=== PATIENT | male | born 1935 | race Caucasian/White ===

== ENCOUNTER 2019-01-30 10:34 | Day surgery (SDC) | payer OTHER ==
[~2019-01-30] VITALS: Ht 175.3 cm; Wt 88.5 kg
[~2019-01-30 10:34] MED LIST: KETO200T PO; MULT1TAB70 PO; RIVA20TA PO; SODIUM CHLORIDE 0.9% 1000ML 1,000 ML IV ONE; TRAVATAN OU
[2019-01-30 11:21] VITALS: BP 135/85
[2019-01-30] MEDS ORDERED: PROPOFOL 10 MG/ML 20ML VIAL IV ONE ×2 (11:56→12:17)
[2019-01-30 12:23] VITALS: BP 99/44
[2019-01-30 12:28] VITALS: BP 137/67
[2019-01-30 12:35] VITALS: BP 136/73
[2019-01-30 12:40] VITALS: BP 128/73
[2019-01-30 12:58] VITALS: BP 149/80
== END 2019-01-30 13:05 | disposition home or self-care (01) ==
LOC: ENDO 10:34 → DAH 10:34 → ENDO 13:05
PROVIDERS: ATTEND Internal Medicine Gastroenterology
DX: D12.3 Benign neoplasm of transverse colon (principal); K29.50 Unspecified chronic gastritis without bleeding; B96.81 Helicobacter pylori [H. pylori] as the cause of diseases classified elsewhere; R19.4 Change in bowel habit; Z68.30 Body mass index [BMI] 30.0-30.9, adult; Z85.038 Personal history of other malignant neoplasm of large intestine; Z85.118 Personal history of other malignant neoplasm of bronchus and lung; Z98.890 Other specified postprocedural states; Z79.899 Other long term (current) drug therapy; Z79.01 Long term (current) use of anticoagulants; K57.30 Diverticulosis of large intestine without perforation or abscess without bleeding; K63.89 Other specified diseases of intestine; I48.2 Chronic atrial fibrillation
CPT/HCPCS: 43239; 45385; 88305; A4606; J2704 ×2; J7030

== ENCOUNTER → 2019-07-24 | Outpatient (CLI) | payer OTHER ==
[~2019-07-24] MED LIST changes: -KETO200T PO; +KETO200T3 PO; -SODIUM CHLORIDE 0.9% 1000ML 1,000 ML IV ONE
== END | disposition home or self-care (01) ==
LOC: SHCH 13:07
PROVIDERS: ATTEND Internal Medicine Cardiovascular Disease
DX: I73.9 Peripheral vascular disease, unspecified (principal); I87.2 Venous insufficiency (chronic) (peripheral); K21.9 Gastro-esophageal reflux disease without esophagitis
CPT/HCPCS: 93925; 93970

== ENCOUNTER → 2019-08-27 | Outpatient (CLI) | payer OTHER | END | disposition home or self-care (01) | LOC: SHCH 13:05 | PROVIDERS: ATTEND Internal Medicine Cardiovascular Disease | DX: I82.812 Embolism and thrombosis of superficial veins of left lower extremity (principal) | CPT/HCPCS: 93971 ==

== ENCOUNTER → 2019-09-17 | Outpatient (CLI) | payer OTHER | END | disposition home or self-care (01) | LOC: SHCH 10:40 | PROVIDERS: ATTEND Internal Medicine Cardiovascular Disease | DX: I82.492 Acute embolism and thrombosis of other specified deep vein of left lower extremity (principal) | CPT/HCPCS: 93971 ==

== ENCOUNTER 2020-02-26 15:21 | Observation (INO) | payer OTHER ==
[~2020-02-26] VITALS: Ht 175.3 cm; Wt 88.9 kg
[~2020-02-26 15:21] MED LIST changes: +KETO200T11 PO; -KETO200T3 PO; +MULT-660 PO; -MULT1TAB70 PO
[2020-02-26] MEDS ORDERED: SODIUM CHLORIDE 0.9% 100 ML IV ONE (15:51)
[2020-02-26] MEDS ORDERED: CEFTRIAXONE SODIUM 2 GM VIAL ONE (15:51)
[2020-02-26] MEDS ORDERED: ONDANSETRON HCL 4 MG/2 ML VIAL ONE (16:20)
[2020-02-26 16:24] LABS: BASOPHILS % (AUTO) 0.2 % (0.0-5.0); EOSINOPHILS % (AUTO) 0.4 % (0.0-8.0); HEMATOCRIT 38.9 % (42-54); LYMPHOCYTES % (AUTO) 9.4 % (21.0-51.0); MEAN CORPUSCULAR HEMOGLOBIN 29.5 pg (27.0-33.0); MEAN CORPUSCULAR HGB CONC 32.1 g/dL (32.0-36.0); MEAN CORPUSCULAR VOLUME 91.7 fL (79-99); MONOCYTES % (AUTO) 5.8 % (3.0-13.0); NEUTROPHILS % (AUTO) 83.9 % (40.0-77.0); PLATELET COUNT (AUTO) 111 K/uL (130-400); RED BLOOD CELL COUNT(AUTO) 4.24 MIL/uL (4.50-6.20); WHITE BLOOD COUNT (AUTO) 9.1 K/uL (4.8-10.8)
[2020-02-26 16:42] LABS: CARBON DIOXIDE 28 mmol/L (21-32); CHLORIDE 103 mmol/L (101-111); CREATININE 1.3 mg/dL (0.5-1.5); GLOMERULAR FILTR. RATE CALC 56 mL/min (>60); GLUCOSE,RANDOM 85 mg/dL (70-105); POTASSIUM 4.2 mmol/L (3.5-5.1); SODIUM SERUM 138 mmol/L (136-145); UREA NITROGEN, BLOOD 34 mg/dL (7-18)
[2020-02-26 16:53] LABS: ALANINE AMINOTRANSFERASE 23 U/L (12-78); ALBUMIN 4.1 g/dL (3.5-5.0); ASPARTATE AMINOTRANSFERASE 28 U/L (10-37); BILIRUBIN,TOTAL 1.6 mg/dL (0.2-1.0); CREATINE KINASE, TOTAL 117 U/L (21-232); MYOGLOBIN 143 ng/mL (10-92); TOTAL PROTEIN, SERUM 7.6 g/dL (6.0-8.3); TROPONIN I < 0.04 ng/mL (0.00-0.06)
[2020-02-26 17:04] LABS: INR 1.38 (0.85-1.15); PARTIAL THROMBOPLASTIN TIME 39.9 SEC (26.3-35.5); PROTHROMBIN TIME 14.7 SEC (9.6-11.6)
[2020-02-26 17:11] LABS: APPEARANCE,URINE Clear (CLEAR); BILIRUBIN,URINE Negative (NEGATIVE); COLOR,URINE Dark Yellow (YELLOW); GLUCOSE, URINE (UA) Negative (NEGATIVE); KETONES,URINE Negative (NEGATIVE); LEUKOCYTE ESTERASE ,URINE Negative (NEGATIVE); NITRATE,URINE Negative (NEGATIVE); OCCULT BLOOD,URINE Trace (NEGATIVE); PROTEIN,URINE Trace mg/dL (NEGATIVE)
[2020-02-26 17:38] LABS: BACTERIA,URINE Rare /HPF (None Seen); RBC,URINE 0-1 /HPF (0-1); SQUAMOUS EPITHELIAL CELL,UR Rare /HPF (0-2); WBC,URINE 0-1 /HPF (0-1)
[2020-02-26 17:39] LABS: HYALINE CASTS, URINE 0-1 /LPF (0-1 /LPF); MUCUS,URINE Few LPF (None Seen)
[2020-02-26] MEDS ORDERED: AZITHROMYCIN 250 MG TABLET PO ONE (19:49)
[2020-02-26] MEDS ORDERED: AZITHROMYCIN 250 MG TABLET PO SCH (20:00)
[2020-02-26] MEDS ORDERED: ACETAMINOPHEN 325 MG TAB PO PRN (20:00)
[2020-02-26] MEDS ORDERED: ONDANSETRON ODT 4 MG TAB PO PRN (20:00)
[2020-02-26 20:26] LABS: CRP QUANTITATIVE 38.5 mg/L (0.00-9.0)
[2020-02-27] MEDS ORDERED: CEFTRIAXONE SODIUM 1 GM IVP SCH (15:00)
[2020-02-27] MEDS ORDERED: DOXA8TAB81 PO (18:29)
[2020-02-27] MEDS ORDERED: CICL15CR15 TP (18:29)
[2020-02-27] MEDS ORDERED: [UNRECOGNIZED DRUG - CODE] TP (18:29)
[2020-02-27] MEDS ORDERED: ATOR10 PO (18:29)
== END 2020-02-26 21:12 | disposition left against medical advice (07) ==
LOC: EDH 15:21 → EDHIP 18:45
PROVIDERS: ADMIT Internal Medicine Critical Care Medicine; ATTEND Internal Medicine Critical Care Medicine
DX: J12.89 Other viral pneumonia (principal); Z20.828 Contact with and (suspected) exposure to other viral communicable diseases
CPT/HCPCS: 36415; 71045; 80053; 81001; 82550; 82728; 83605; 83615; 83874; 84145; 84484; 85025; 85378; 85610; 85730; 86140; 87040 ×2; 87088; 87633; 87635; 87804 ×2; 93005; 99285; G0378 ×2; J0696; J2405

== ENCOUNTER 2020-02-27 13:43 | Observation (INO) | payer OTHER ==
[~2020-02-27] VITALS: Ht 172.7 cm; Wt 89.8 kg
[2020-02-27 14:33] LABS: BASOPHILS % (AUTO) 0.2 % (0.0-5.0); EOSINOPHILS % (AUTO) 0.1 % (0.0-8.0); HEMATOCRIT 36.5 % (42-54); LYMPHOCYTES % (AUTO) 9.8 % (21.0-51.0); MEAN CORPUSCULAR HGB CONC 33.2 g/dL (32.0-36.0); MEAN CORPUSCULAR VOLUME 90.6 fL (79-99); NEUTROPHILS % (AUTO) 80.6 % (40.0-77.0); PLATELET COUNT (AUTO) 100 K/uL (130-400); RED BLOOD CELL COUNT(AUTO) 4.03 MIL/uL (4.50-6.20); RED CELL DISTRIBUTION WIDTH 13.7 % (11.0-15.5); WHITE BLOOD COUNT (AUTO) 8.6 K/uL (4.8-10.8)
[2020-02-27 14:39] LABS: CARBON DIOXIDE 28 mmol/L (21-32); CHLORIDE 105 mmol/L (101-111); CREATININE 1.2 mg/dL (0.5-1.5); GLOMERULAR FILTR. RATE CALC 61 mL/min (>60); GLUCOSE,RANDOM 101 mg/dL (70-105); POTASSIUM 3.9 mmol/L (3.5-5.1); SODIUM SERUM 138 mmol/L (136-145); UREA NITROGEN, BLOOD 28 mg/dL (7-18)
[2020-02-27 14:41] LABS: INR 1.28 (0.85-1.15); PROTHROMBIN TIME 13.7 SEC (9.6-11.6)
[2020-02-27 14:43] LABS: APPEARANCE,URINE CLEAR (CLEAR); BILIRUBIN,URINE NEGATIVE (NEGATIVE); COLOR,URINE YELLOW (YELLOW); GLUCOSE, URINE (UA) NEGATIVE (NEGATIVE); KETONES,URINE NEGATIVE (NEGATIVE); LEUKOCYTE ESTERASE ,URINE NEGATIVE (NEGATIVE); NITRATE,URINE NEGATIVE (NEGATIVE); OCCULT BLOOD,URINE SMALL (NEGATIVE); PROTEIN,URINE 30 mg/dL (NEGATIVE); UROBILINOGEN,URINE 0.2 mg/dL (0.2-1.0)
[2020-02-27] MEDS: CEFTRIAXONE SODIUM 1 GM IVP SCH (14:45)
[2020-02-27] MEDS: FUROSEMIDE 20 MG TABLET PO SCH (14:45)
[2020-02-27] MEDS ORDERED: HYDRALAZINE HCL 20 MG/ML VIAL IV PRN (14:45)
[2020-02-27] MEDS ORDERED: DEXAMETHASONE 10MG/ML 1ML VIAL 20 MG in SODIUM CHLORIDE 0.9% 50 ML IV SCH (14:45)
[2020-02-27 14:53] LABS: ALANINE AMINOTRANSFERASE 28 U/L (12-78); ALBUMIN 3.9 g/dL (3.5-5.0); ASPARTATE AMINOTRANSFERASE 31 U/L (10-37); BILIRUBIN,TOTAL 1.1 mg/dL (0.2-1.0); CREATINE KINASE, TOTAL 174 U/L (21-232); MYOGLOBIN 139 ng/mL (10-92); TROPONIN I < 0.04 ng/mL (0.00-0.06)
[2020-02-27 15:18] LABS: WBC,URINE 0-1 /HPF (0-1)
[2020-02-27 15:19] LABS: BACTERIA,URINE Few /HPF (None Seen); MUCUS,URINE Few LPF (None Seen); SQUAMOUS EPITHELIAL CELL,UR Rare /HPF (0-2)
[2020-02-27 15:29] LABS: ABG BASE EXCESS 0.5 mmol/L (-2.0-3.0); ABG HCO3 24.5 mmol/L (21.0-28.0); ABG OXYGEN SATURATION 97.6 % (95.0-99.0); ABG PCO2 38 mmHg (35-48)
[2020-02-27 15:30] VITALS: BP 119/74
[2020-02-27] MEDS ORDERED: CEFTRIAXONE SODIUM 1 GM ONE (15:52)
[2020-02-27] MEDS: AZITHROMYCIN 500MG+NS 250ML 250 ML IV SCH (16:00)
[2020-02-27] MEDS: INSULIN HUMULIN R 100 UNIT/ML 3ML SQ SCH ×2 (16:30→20:00)
[2020-02-27] MEDS ORDERED: [UNRECOGNIZED DRUG - CODE] TP (18:29)
[2020-02-27] MEDS ORDERED: CICL15CR15 TP (18:29)
[2020-02-27] MEDS ORDERED: DOXA8TAB81 PO (18:29)
[2020-02-27] MEDS ORDERED: ATOR10 PO (18:29)
[2020-02-27] MEDS: RIVAROXABAN 20 MG TABLET PO SCH (20:04)
[2020-02-27 20:08] VITALS: BP 133/70
[2020-02-27 23:43] VITALS: BP 152/79
[2020-02-28] MEDS: FUROSEMIDE 20 MG TABLET PO SCH ×2 (03:40→13:18)
[2020-02-28 03:51] VITALS: BP 117/72
[2020-02-28 04:24] LABS: ABG BASE EXCESS -3.5 mmol/L (-2.0-3.0); ABG HCO3 20.4 mmol/L (21.0-28.0); ABG OXYGEN SATURATION 97.4 % (95.0-99.0); ABG PCO2 34 mmHg (35-48)
[2020-02-28 04:50] LABS: HEMATOCRIT 35.5 % (42-54); MEAN CORPUSCULAR HEMOGLOBIN 29.2 pg (27.0-33.0); MEAN CORPUSCULAR HGB CONC 31.8 g/dL (32.0-36.0); MEAN CORPUSCULAR VOLUME 91.7 fL (79-99); RED BLOOD CELL COUNT(AUTO) 3.87 MIL/uL (4.50-6.20); RED CELL DISTRIBUTION WIDTH 13.8 % (11.0-15.5); WHITE BLOOD COUNT (AUTO) 6.6 K/uL (4.8-10.8)
[2020-02-28 05:15] LABS: INR 1.55 (0.85-1.15); PARTIAL THROMBOPLASTIN TIME 43.2 SEC (26.3-35.5); PROTHROMBIN TIME 16.5 SEC (9.6-11.6)
[2020-02-28 05:17] LABS: ALBUMIN 3.4 g/dL (3.5-5.0); BILIRUBIN,TOTAL 0.7 mg/dL (0.2-1.0); CREATININE 1.2 mg/dL (0.5-1.5); CRP QUANTITATIVE 40.8 mg/L (0.00-9.0); MAGNESIUM 1.9 mg/dL (1.80-2.40); PHOSPHORUS 2.6 mg/dL (2.5-4.9); POTASSIUM 3.8 mmol/L (3.5-5.1); TOTAL PROTEIN, SERUM 6.8 g/dL (6.0-8.3)
[2020-02-28] MEDS: INSULIN HUMULIN R 100 UNIT/ML 3ML SQ SCH ×4 (07:30→20:36)
[2020-02-28 08:30] VITALS: BP 111/60
[2020-02-28] MEDS: MULTIVITAMIN TABLET PO SCH (08:38)
[2020-02-28] MEDS: KETOCONAZOLE 200 MG PO SCH (08:57)
--- NOTE | 2020-02-28 09:20 | NUR ---
DYSPHAGIA MAGED COMPLETED. S/S OF ASPIRATION AT THIS TIME. RECOMMEND REGULAR SOLIDS, THIN LIQUIDS, AND PILLS WHOLE WITH LIQUIDS TOLERATED. IRON CUTTER EDUCATED Pt ON RISKS AND CONSEQUENCES OF ASPIRATION. IRON CUTTER COORDINATED WITH NURSE TOMLINSON ABOUT CARE AND RECOMMENDATIONS. Addendum: 02/28/[address] L[address]ITHA FLORES Amended: Links added.
[2020-02-28] MEDS ORDERED: PHARMACY COMMUNICATION MISC SCH (12:00)
[2020-02-28] MEDS ORDERED: COMPOUND PO MISCELLANEOUS 1 EACH MISC MISC PRN (12:15)
[2020-02-28 13:06] VITALS: BP 109/64
[2020-02-28] MEDS: AZITHROMYCIN 500MG+NS 250ML 250 ML IV SCH (13:18)
[2020-02-28] MEDS: CEFTRIAXONE SODIUM 1 GM IVP SCH (13:18)
[2020-02-28] MEDS: DEXAMETHASONE 10MG/ML 1ML VIAL 20 MG in SODIUM CHLORIDE 0.9% 50 ML IV SCH (13:20)
[2020-02-28] MEDS: VANCOMYCIN 2 GM, SODIUM CHLORIDE 0.9% 80 ML PO SCH ×6 (13:20→20:20)
[2020-02-28 16:30] VITALS: BP 124/66
[2020-02-28 20:00] VITALS: BP 131/59
[2020-02-28] MEDS: RIVAROXABAN 20 MG TABLET PO SCH (20:19)
[2020-02-28] MEDS ORDERED: TRAVATAN OU SCH (21:00)
[2020-02-29 00:14] VITALS: BP 105/48
[2020-02-29] MEDS: FUROSEMIDE 20 MG TABLET PO SCH ×2 (01:26→13:28)
[2020-02-29 04:00] VITALS: BP 106/46
[2020-02-29] MEDS: INSULIN HUMULIN R 100 UNIT/ML 3ML SQ SCH ×2 (06:10→11:26)
[2020-02-29 07:00] VITALS: BP 131/58
[2020-02-29] MEDS: MULTIVITAMIN TABLET PO SCH (07:41)
[2020-02-29] MEDS: KETOCONAZOLE 200 MG PO SCH (07:41)
[2020-02-29] MEDS: VANCOMYCIN 2 GM, SODIUM CHLORIDE 0.9% 80 ML PO SCH ×4 (07:45→11:26)
--- NOTE | 2020-02-29 08:00 | NUR ---
ENCOUNTERED PATIENT SITTING ON EDGE OF BED WITH NO C/O SOB. PATIENT IS ANXIOUS TO GO HOME ASKING IF COVID-19 RESULTS ARE BACK. I INFORMED PATIENT THAT OF THIS MORNING, RESULTS ARE STILL PENDING. HE VERBALIZED THAT HE MIGHT NOT HAVE THE PATIENCE TO WAIT THE WHOLE DAY TODAY AND MIGHT JUST HAVE TO "WALK OUT" IF HE DOES NOT GET ANSWERS. PT SAID THAT HE'LL GIVE IT THE WHOLE DAY. FULL ASSESSMENT DONE. KEPT PATIENT ON BOTH ENHANCED AND CONTACT PLUS ISOLATION. PT DENIES ANY DIARRHEA. HE SAID THAT LAST BM AT 7AM WAS SOFT FORMED. CALL LIGHT WITHIN REACH. INSTRUCTED TO CALL FOR ASSISTANCE.
[2020-02-29] MEDS: DEXAMETHASONE 10MG/ML 1ML VIAL 20 MG in SODIUM CHLORIDE 0.9% 50 ML IV SCH (08:05)
[2020-02-29 11:00] VITALS: BP 103/60
--- NOTE | 2020-02-29 12:36 | NUR ---
CALLED [facility] FOR NEW CONSULT. LEFT VOICEMAIL FOR HYUN. AWAITING MD'S CALLBACK. DR. INGRAM IS HR SYSTEMS ANALYST TODAY.
[2020-02-29] MEDS: AZITHROMYCIN 500MG+NS 250ML 250 ML IV SCH (13:28)
[2020-02-29] MEDS: CEFTRIAXONE SODIUM 1 GM IVP SCH (13:28)
--- NOTE | 2020-02-29 13:38 | NUR ---
RM CARTAGENA ACID DUMPER IS HERE TO SEE PATIENT.
--- NOTE | 2020-02-29 15:55 | NUR ---
PATIENT IS PENDING COVID-19 RESULTS. INFORMED NATALIA WEBER RN ABOUT THIS. SHE WILL CALL PATIENT WITH RESULTS.
[2020-02-29] MEDS ORDERED: VANCO125PO PO (16:21)
--- NOTE | 2020-02-29 16:26 | NUR ---
DISCHARGE INSTRUCTIONS/INFORMATION GIVEN TO PATIENT. TEACH BACK METHOD USED TO EDUCATE PATIENT ON DIET, NEW MED PRESCRIBED, S/S TO MONITOR FOR, WHEN TO CALL MD, AND F/U APPOINTMENTS. PATIENT IS STILL PENDING COVID-19 RESULTS. HE WILL BE CALLED BY INFECTION CONTROL NURSE WITH IT. ENCOURAGED PATIENT TO CONTINUE TO FOLLOW CDC GUIDELINES IN PREVENTING SPREAD OF COVID-19. PATIENT IS ASKED TO SELF QUARANTINE FOR 14 DAYS OR INSTRUCTED BY INFECTION CONTROL NURSE. PIV REMOVED. TIP WAS INTACT. TELE PACK REMOVED AND RETURNED. ALL BELONGINGS WERE PACKED BY PATIENT. METICULOUS HAND HYGIENE ENCOURAGED. PATIENT VERBALIZED UNDERSTANDING OF ALL INSTRUCTIONS. NO SOB, MALAISE, SORE THROAT AT THIS TIME.
== END 2020-02-29 18:10 | disposition home or self-care (01) ==
LOC: EDH 13:43 → EDHIP 14:35 → 2DH 16:29
PROVIDERS: ADMIT Internal Medicine Critical Care Medicine; ATTEND Internal Medicine Critical Care Medicine
DX: J18.9 Pneumonia, unspecified organism (principal); Z03.818 Encounter for observation for suspected exposure to other biological agents ruled out; A04.72 Enterocolitis due to Clostridium difficile, not specified as recurrent; R00.1 Bradycardia, unspecified; I48.91 Unspecified atrial fibrillation; I25.10 Atherosclerotic heart disease of native coronary artery without angina pectoris; I51.7 Cardiomegaly; N40.0 Benign prostatic hyperplasia without lower urinary tract symptoms; Z85.118 Personal history of other malignant neoplasm of bronchus and lung; Z79.01 Long term (current) use of anticoagulants; Z79.899 Other long term (current) drug therapy
CPT/HCPCS: 36415 ×2; 36600 ×2; 71045; 71250; 80053 ×2; 82270; 82550 ×2; 82728; 82803 ×2; 82948 ×7; 83605 ×2; 83615; 83735; 83874; 84100; 84145 ×2; 84484; 85025; 85027; 85378; 85610 ×2; 85730 ×2; 86140; 87040 ×2; 87046; 87088; 87324; 92610; 93005 ×2; 93970; 96365; 96366; 96368; 96375; 96376; 99285; G0378 ×49; J0456 ×2; J0696 ×3; J1100 ×2; J1815 ×2; J3370

== ENCOUNTER → 2021-09-15 | Outpatient (CLI) | payer OTHER ==
[~2021-09-15] MED LIST changes: +ATOR10 PO; +CICL15CR15 TP; +DOXA8TAB81 PO; +VANCO125PO PO; +[UNRECOGNIZED DRUG - CODE] TP
== END | disposition home or self-care (01) ==
LOC: SHCH 14:45
PROVIDERS: ATTEND Internal Medicine Cardiovascular Disease
DX: I87.2 Venous insufficiency (chronic) (peripheral) (principal)
CPT/HCPCS: 93970

== ENCOUNTER → 2021-12-07 | Outpatient (CLI) | payer OTHER ==
[~2021-12-07] MED LIST changes: +IOHEXOL 350 MG/ML 100ML INFUS..BTL IV ONE
== END | disposition home or self-care (01) ==
LOC: RAH 08:36
PROVIDERS: ATTEND Urology
DX: N20.0 Calculus of kidney (principal); N32.89 Other specified disorders of bladder; I25.10 Atherosclerotic heart disease of native coronary artery without angina pectoris; I70.8 Atherosclerosis of other arteries; J92.9 Pleural plaque without asbestos; R18.8 Other ascites; M47.815 Spondylosis without myelopathy or radiculopathy, thoracolumbar region; Z95.828 Presence of other vascular implants and grafts; Z90.49 Acquired absence of other specified parts of digestive tract
CPT/HCPCS: 74178; Q9967

== ENCOUNTER → 2023-11-28 | Outpatient (CLI) | payer OTHER ==
[~2023-11-28] MED LIST changes: -IOHEXOL 350 MG/ML 100ML INFUS..BTL IV ONE
== END | disposition home or self-care (01) ==
LOC: SHCH 09:22
PROVIDERS: ATTEND Internal Medicine Cardiovascular Disease
DX: I87.2 Venous insufficiency (chronic) (peripheral) (principal); Z98.890 Other specified postprocedural states
CPT/HCPCS: 93971

== ENCOUNTER → 2023-12-05 | Outpatient (CLI) | payer OTHER | END | disposition home or self-care (01) | LOC: SHCH 08:53 | PROVIDERS: ATTEND Internal Medicine Cardiovascular Disease | DX: I87.2 Venous insufficiency (chronic) (peripheral) (principal); I87.1 Compression of vein; I48.91 Unspecified atrial fibrillation; I89.0 Lymphedema, not elsewhere classified; I25.10 Atherosclerotic heart disease of native coronary artery without angina pectoris; Z79.899 Other long term (current) drug therapy; Z82.49 Family history of ischemic heart disease and other diseases of the circulatory system; Z79.01 Long term (current) use of anticoagulants | CPT/HCPCS: 93971 ==

== ENCOUNTER → 2024-02-28 | Outpatient (CLI) | payer OTHER ==
[2024-02-28 12:57] LABS: CREATININE 1.1 mg/dL (0.5-1.3)
== END | disposition home or self-care (01) ==
LOC: LAB 11:41
PROVIDERS: ATTEND Family Medicine
DX: R63.4 Abnormal weight loss (principal)
CPT/HCPCS: 36415; 82565; 84520

== ENCOUNTER → 2024-03-01 | Outpatient (CLI) | payer OTHER ==
[~2024-03-01] MED LIST changes: +IOHEXOL 350 MG/ML 100ML INFUS..BTL IV ONE
== END | disposition home or self-care (01) ==
LOC: RAH 08:00
PROVIDERS: ATTEND Family Medicine
DX: J92.9 Pleural plaque without asbestos (principal); J84.10 Pulmonary fibrosis, unspecified; J94.8 Other specified pleural conditions; I25.10 Atherosclerotic heart disease of native coronary artery without angina pectoris; R63.4 Abnormal weight loss; M47.815 Spondylosis without myelopathy or radiculopathy, thoracolumbar region
CPT/HCPCS: 71260; 74177; Q9967

== ENCOUNTER → 2024-08-07 | Outpatient (CLI) | payer OTHER ==
[~2024-08-07] MED LIST changes: -IOHEXOL 350 MG/ML 100ML INFUS..BTL IV ONE
== END | disposition home or self-care (01) ==
LOC: SHCH 09:08
PROVIDERS: ATTEND Internal Medicine Cardiovascular Disease
DX: I25.110 Atherosclerotic heart disease of native coronary artery with unstable angina pectoris (principal)
CPT/HCPCS: 93306

== ENCOUNTER → 2024-10-19 | Outpatient (CLI) | payer OTHER ==
[2024-10-19 12:35] LABS: CREATININE 1.1 mg/dL (0.5-1.3); POTASSIUM 4.8 mmol/L (3.5-5.1)
== END | disposition home or self-care (01) ==
LOC: LAB 10:16
PROVIDERS: ATTEND Internal Medicine Cardiovascular Disease
DX: I20.9 Angina pectoris, unspecified (principal); R07.9 Chest pain, unspecified; R06.09 Other forms of dyspnea
CPT/HCPCS: 36415; 80048

== ENCOUNTER → 2024-10-26 | Outpatient (CLI) | payer OTHER ==
[~2024-10-26] MED LIST changes: +IOHEXOL 350 MG/ML 100ML INFUS..BTL IV ONE
--- NOTE | 2024-10-26 13:53 | HMCIMG ---
CT CARDIAC ANGIO W/CONT. CCTA REASON: CHEST PAIN COMPARISON: None TECHNIQUE: Images are obtained through the heart in the axial plane before and during bolus IV contrast infusion, 100 cc Omnipaque 350. 2-D and 3-D multiplanar reconstruction images were then performed. The injection had to be repeated once due to motion artifact on the first sequence, total contrast volume was 200 cc. FINDINGS: This dictation is for the noncardiac findings only. Cardiac and coronary artery findings are reported separately. Visualized portions of the lungs are clear. There is normal-appearing pulmonary interstitium. There is no hilar or mediastinal lymphadenopathy. Chest wall structures appear unremarkable. IMPRESSION: 1. Unremarkable noncardiac portions of CT cardiac angiography.
[2024-10-26 15:17] LABS: BASOPHILS # (AUTO) 0.03 K/uL (0.00-0.20); BASOPHILS % (AUTO) 0.6 % (0.0-5.0); EOSINOPHILS % (AUTO) 1.9 % (0.0-8.0); HEMATOCRIT 32.2 % (42-54); IMMATURE GRANULOCYTE ABSOLUTE 0.02 K/uL (0-1); LYMPHOCYTES # (AUTO) 1.2 K/uL (1.0-4.8); LYMPHOCYTES % (AUTO) 22.4 % (21.0-51.0); MEAN CORPUSCULAR HEMOGLOBIN 30.7 pg (27.0-33.0); MEAN CORPUSCULAR HGB CONC 31.7 g/dL (32.0-36.0); MONOCYTES # (AUTO) 0.4 K/uL (0.1-1.0); MONOCYTES % (AUTO) 7.5 % (3.0-13.0); NEUTROPHILS # (AUTO) 3.5 K/uL (1.8-7.7); NEUTROPHILS % (AUTO) 67.2 % (40.0-77.0); PLATELET COUNT (AUTO) 128 K/uL (130-400); RED BLOOD CELL COUNT(AUTO) 3.32 MIL/uL (4.50-6.20); RED CELL DISTRIBUTION WIDTH 14.1 % (11.0-15.5); WHITE BLOOD COUNT (AUTO) 5.2 K/uL (4.8-10.8)
[2024-10-26 16:27] LABS: ALBUMIN 3.7 g/dL (3.5-5.0); BILIRUBIN,TOTAL 0.9 mg/dL (0.2-1.0); CREATININE 1.1 mg/dL (0.5-1.3); POTASSIUM 4.7 mmol/L (3.5-5.1); TOTAL PROTEIN, SERUM 6.9 g/dL (6.0-8.3)
== END | disposition home or self-care (01) ==
LOC: RAH 10:42
PROVIDERS: ATTEND Internal Medicine Cardiovascular Disease
DX: I25.10 Atherosclerotic heart disease of native coronary artery without angina pectoris (principal); I50.31 Acute diastolic (congestive) heart failure; R07.9 Chest pain, unspecified; R06.09 Other forms of dyspnea
CPT/HCPCS: 75574; 80053; 83880; 85025; 36415; Q9967

== ENCOUNTER 2024-12-11 07:14 | Observation (INO) | payer OTHER ==
[2024-12-07 10:19] LABS: BASOPHILS # (AUTO) 0.02 K/uL (0.00-0.20); BASOPHILS % (AUTO) 0.4 % (0.0-5.0); EOSINOPHILS % (AUTO) 1.9 % (0.0-8.0); HEMATOCRIT 33.3 % (42-54); IMMATURE GRANULOCYTE ABSOLUTE 0.01 K/uL (0-1); LYMPHOCYTES # (AUTO) 1.3 K/uL (1.0-4.8); LYMPHOCYTES % (AUTO) 25.1 % (21.0-51.0); MEAN CORPUSCULAR HEMOGLOBIN 30.3 pg (27.0-33.0); MEAN CORPUSCULAR HGB CONC 32.1 g/dL (32.0-36.0); MEAN CORPUSCULAR VOLUME 94.3 fL (79-99); MONOCYTES # (AUTO) 0.4 K/uL (0.1-1.0); MONOCYTES % (AUTO) 8.3 % (3.0-13.0); NEUTROPHILS # (AUTO) 3.3 K/uL (1.8-7.7); NEUTROPHILS % (AUTO) 64.1 % (40.0-77.0); PLATELET COUNT (AUTO) 137 K/uL (130-400); RED BLOOD CELL COUNT(AUTO) 3.53 MIL/uL (4.50-6.20); RED CELL DISTRIBUTION WIDTH 13.8 % (11.0-15.5); WHITE BLOOD COUNT (AUTO) 5.2 K/uL (4.8-10.8)
[2024-12-07 10:21] LABS: APPEARANCE,URINE CLEAR (CLEAR); BILIRUBIN,URINE NEGATIVE (NEGATIVE); COLOR,URINE YELLOW (YELLOW); GLUCOSE, URINE (UA) NEGATIVE (NEGATIVE); KETONES,URINE NEGATIVE (NEGATIVE); LEUKOCYTE ESTERASE ,URINE NEGATIVE Leu/uL (NEGATIVE); NITRATE,URINE NEGATIVE (NEGATIVE); OCCULT BLOOD,URINE NEGATIVE (NEGATIVE); PROTEIN,URINE NEGATIVE (NEGATIVE); UROBILINOGEN,URINE 0.2 mg/dL (0.2-1.0)
[2024-12-07 10:23] LABS: ADD UA MICROSCOPIC NO
--- NOTE | 2024-12-07 10:24 | EKG ---
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
[2024-12-07 10:25] LABS: CREATININE 1.3 mg/dL (0.5-1.3); POTASSIUM 4.5 mmol/L (3.5-5.1)
[2024-12-07 10:35] LABS: INR 1.19 (0.85-1.15); PROTHROMBIN TIME 12.4 SEC (9.6-11.6)
[2024-12-07 10:37] LABS: PARTIAL THROMBOPLASTIN TIME 30.2 SEC (26.3-35.5)
[2024-12-07 10:40] LABS: B-TYPE NATRIURETIC PEPTIDE 222 pg/mL (0-100)
[2024-12-07 11:02] VITALS: BP 158/74; PULSE 64; RESP 14; TEMP 97.9
--- NOTE | 2024-12-07 11:40 | HMCIMG ---
CHEST 1VW HISTORY: Preop COMPARISON: None FINDINGS: A frontal projection of the chest was obtained. There are bilateral pulmonary infiltrates suggestive of pulmonary vascular congestion with possible superimposed pneumonitis. Right lung volume loss is seen. The heart is borderline enlarged. Tortuosity of the aorta is seen. Degenerative changes are seen. IMPRESSION: 1. Bilateral pulmonary infiltrates are seen suggestive of pulmonary vascular congestion with possible superimposed pneumonitis.
--- NOTE | 2024-12-10 12:14 | NUR ---
REPORT REPORTED h&H/BUN/CREAT/CXR TO FANNY BAPTISTE. OK TO PROCEED
[~2024-12-11] VITALS: Ht 175.3 cm; Wt 79.2 kg
[2024-12-11] VITALS (14 sets, daily range): BP systolic 128–156; BP diastolic 52–77; PULSE 47–82; RESP 14–18; TEMP 97.4–98; O2SAT 98–99
[~2024-12-11 07:14] MED LIST changes: -CICL15CR15 TP; +CLOT30SO2 TP; -DOXA8TAB81 PO; +FLUT1BLS3; +FURO20TA4 PO; -IOHEXOL 350 MG/ML 100ML INFUS..BTL IV ONE; +ISOS30TA92 PO; +KETO120S13 TP; +KETO15CR2 TP; -KETO200T11 PO; +LACHLOT TP; +LATA2.5D14 OP; -MULT-660 PO; +NITR0.4T50 SL; +OXYB-61 PO; -TRAVATAN OU; -VANCO125PO PO; -[UNRECOGNIZED DRUG - CODE] TP
[2024-12-11] MEDS: 0.9%NACL 1000ML 1,000 ML IV SCH ×2 (08:31→13:00)
[2024-12-11] MEDS ORDERED: HEParin-NS 1,000 UNIT/500 ML 0 ML IV ONE (08:55)
[2024-12-11] MEDS ORDERED: IOHEXOL 350 MG/ML 100ML INFUS..BTL IV ONE ×2 (08:55→10:40)
[2024-12-11] MEDS ORDERED: VERAPAMIL HCL 2.5 MG/ML VIAL ONE (08:55)
[2024-12-11] MEDS ORDERED: HEParin 10,000 UNIT/10ML (1,000 UNIT/ML) VIAL ONE ×2 (08:55→11:08)
[2024-12-11] MEDS ORDERED: LIDOCAINE HCL 400MG/20ML VIAL ONE ×2 (08:55→10:40)
[2024-12-11] MEDS ORDERED: NITROGLYCERIN 50MG VIAL ONE ×2 (08:55→10:41)
[2024-12-11] MEDS ORDERED: HEParin-NS 1,000 UNIT/500 ML 1,000 ML IV ONE (10:41)
[2024-12-11] MEDS ORDERED: BIVALIRUDIN 250 MG/VIAL IV ONE (11:07)
[2024-12-11] MEDS ORDERED: FENTanyl CITRate PF 50 MCG/1 ML 2ML VIAL ONE (11:07)
[2024-12-11] MEDS ORDERED: MIDAZOLAM HCL 1 MG/ML 2ML VIAL ONE (11:07)
[2024-12-11] MEDS ORDERED: ATROPINE 1MG SYG IVP ONE (11:25)
[2024-12-11] MEDS ORDERED: cloPIDOgrel 300MG TAB ONE (12:27)
[2024-12-11] MEDS ORDERED: ASPIRIN 325MG EC TAB PO ONE (12:28)
--- NOTE | 2024-12-11 12:49 | PRN ---
PROCEDURES: 1. Right common femoral arterial sheath placement. 2. Selective coronary angiogram. 3. Angioplasty to proximal mid and distal RCA with a 2 mm x 15 mm balloon 4. Lithotripsy angioplasty to the proximal and mid RCA and distal RCA extending into proximal RPL with a 3 mm by 12 mm lithotripsy balloon deployed up to 4 atmospheres at 4 treatments at each level 5. 3 mm x 22 mm resolute richard stent to distal RCA extending into proximal RPL deployed to 3.10 mm, 3 mm x 22 mm resolute richard stent to mid RCA deployed to 3.10 mm, 3 mm x 30 mm resolute richard stent deployed to 3.20 mm with the proximal segment post dilated to 3.52 mm 6. Perclose device for closure of arteriotomy site 7. Conscious sedation INDICATION: Class [address] angiogram revealing severe multivessel disease DESCRIPTION OF PROCEDURE: The patient was brought to the catheterization suite and prepped and draped in sterile fashion. IV was started, and not already in place and both groins were exposed for arterial access. 1% lidocaine was used for local anesthesia and then a micropuncture kit was used to gain access once free-flowing blood was seen, modified Seldinger technique was utilized to place a 6 Danish sheath into the right common femoral artery. Next, preformed JL4 and JR 4 catheters were used to selectively engage the platinum coronary vessels and multiple hand contrast injections were performed in different views to define the coronary anatomy. Findings are as described below FINDINGS: The left main artery is short gives rise to the LAD and left circumflex artery and is free of any significant stenosis. The proximal mid and distal segment of the LAD has significant calcium noted with no flow obstructing lesion seen except for a 40-50% stenosis noted out of the apical LAD. Diagonal branch system reveals no significant stenosis. The left circumflex artery is a nondominant system is calcified and there was an occlusion of the obtuse marginal branch 3. Which was not present in 2015. The ongoing distal circumflex is free of any significant stenosis. The right coronary artery is a dominant vessel giving rise to the PDA and RPL with significant calcium noted throughout its course with a an 85% stenosis noted in the proximal RCA 70-80% stenosis in the mid distal RCA and a 75-80% stenosis in the distal RCA extending into the proximal RPL. INTERVENTIONAL REPORT: After diagnostic angiography was performed and images were compared to last coronary angiogram from 2015 it was felt intervention should be done to right coronary artery therefore a 6 Danish JR4 guide catheter with side holes was placed into the RCA and then a choice PT extra-support wire was then placed into 1 of the branches of the RPL. Initial attempts were made to pass a 3 mm x 12 mm lithotripsy balloon but were unsuccessful therefore a GuideLiner was placed for support and then a 2 mm x 15 mm balloon was then placed in the distal RCA into the RPL and deployed x2 up to 14 atmospheres. This was then brought back to the mid RCA deployed x1 up to 14 atmospheres again for 30 seconds. This was then brought back to the proximal segment and then up to rated pressure for satnam roximately 30 seconds. This was then removed and with the assistance of GuideLiner the 3 mm x 12 mm lithotripsy balloon was then placed into the proximal RPL into the distal RCA and 4 treatments were done at 4 atmospheres in this region. This was then brought back to the mid RCA taken up to 4 atmospheres and 4 treatments were done at this level and then brought back to the proximal RCA taken up to 6 atmospheres in 4 treatments were done at the proximal RCA. This was then removed and then a 3 mm x 22 mm resolute richard stent was then placed into the distal RCA extending into the proximal RPL and deployed to 3.10 mm. A 2nd 3 mm x 22 mm stent was then placed in the distal mid RCA and deployed to 3.10 mm. Next a 3 mm x 30 mm resolute richard stent was then placed in the proximal RCA and deployed to 3.20 mm and then follow up contrast injection with no evidence of dissection or perforation and there was an area in the proximal portion of the RCA that we thought needed postdilatation and a 3.5 mm x 15 mm NC Euphora balloon was then placed into that region and deployed to 3.52 mm. Follow up contrast injection with no evidence of dissection or perforation. RECOMMENDATIONS: Send patient home on Xarelto and Plavix Keep patient in the hospital overnight Check laboratory data in the morning Discharge in CAITIE Norman MD Dec 11, 2024 12:49
[2024-12-11] MEDS ORDERED: DEXTROSE 50%-WATER 50 ML DISP.SYRIN IV PRN (13:00)
[2024-12-11] MEDS ORDERED: metoPROLOL tartRATE 1 MG/ML 5ML VIAL IV PRN (13:00)
[2024-12-11] MEDS ORDERED: GLUCAGON 1MG KIT 1 MG ML IM PRN (13:00)
--- NOTE | 2024-12-11 14:23 | NUR ---
Patient eating Lunch with minimal assistance. Encouraged fluids. Right Femoral site clean, dry and intact. No sign of bleeding, bruising or hematoma. Mildly puffy to area surrounding opsite. Pedal pulses palpable to BLE's. SR remains with intermittent A flutter as his baseline.. Patient updated Family. He appears restful and cooperative to POC. Denies c/o pain or pressure. SR's up x 2. Call light in reach. Reported off in full to LEILA Haynes.
--- NOTE | 2024-12-11 17:10 | NUR ---
SBAR REPORT GIVEN TO LEILA BRANDT AT THIS TIME. UPDATE ON PATIENT STATUS, ORDERS. RIGHT FEMORAL SITE DRESSING C,D & I, NO BLEEDING/OOZING/HEMATOMA NOTED. SURROUNDING AREA SOFT, NON-TENDER. PATIENT TRANSFERRED TO ROOM 228 AT THIS TIME WITH BELONGINGS AT BEDSIDE
[2024-12-12 03:00] VITALS: BP 116/66; PULSE 59; RESP 18; TEMP 98.1
[2024-12-12 04:05] LABS: MEAN CORPUSCULAR HEMOGLOBIN 30.7 pg (27.0-33.0); MEAN CORPUSCULAR HGB CONC 32.7 g/dL (32.0-36.0); RED BLOOD CELL COUNT(AUTO) 3.19 MIL/uL (4.50-6.20); RED CELL DISTRIBUTION WIDTH 13.5 % (11.0-15.5); WHITE BLOOD COUNT (AUTO) 5.6 K/uL (4.8-10.8)
[2024-12-12 04:17] LABS: CREATININE 1.1 mg/dL (0.5-1.3); POTASSIUM 4.7 mmol/L (3.5-5.1)
--- NOTE | 2024-12-12 07:34 | PN ---
PROGRESS NOTE PROBLEM LIST: Persistent atrial fibrillation on anticoagulation therapy Octogenarian state Class [address] angiogram revealing severe progression of coronary artery disease Status post coronary angiography postprocedure day1 revealing patent LAD, occluded obtuse marginal branch 3, sequential lesions in the proximal mid distal RCA and proximal RPL of 85-90%, 75-80%, 70-80% respectively Status post multi stent placement throughout course of proximal mid distal RCA extending into RPL please see separate report Chronic anemia known INTERIM HISTORY OF PRESENT ILLNESS: Overnight patient's telemetry was unremarkable except for his obvious atrial fibrillation with some slowed responses at times. Blood pressures remained stable. Laboratory data has been reviewed. Overall patient denies any chest pain pressure tightness. He did note maybe some pink appearing urine which is of obvious concern considering patient on chronically on Xarelto and now clopidogrel has been added. The patient's expected blood drop was noted with no excessive drop in hemoglobin seen REVIEW OF SYSTEMS: No fever, headache, chest pain, abdominal pain, nausea, vomiting, or diarrhea. VITAL SIGNS Vital Signs Date Time Temp Pulse Resp B/P (MAP) Pulse Ox O2 Delivery O2 Flow Rate FiO2 12/12/24 03:00 98.1 59 18 116/66 96 Room Air 12/11/24 20:12 0 21 Laboratory Tests 12/12/24 03:34 LABS/MEDS Laboratory Tests Test 12/12/24 03:34 White Blood Count 5.6 K/uL (4.8-10.8) Red Blood Count 3.19 MIL/uL (4.50-6.20) L Hemoglobin 9.8 g/dL (14.0-18.0) L Hematocrit 30.0 % (42-54) L Mean Corpuscular Volume 94.0 fL (79-99) Mean Corpuscular Hemoglobin 30.7 pg (27.0-33.0) Mean Corpuscular Hemoglobin Concent 32.7 g/dL (32.0-36.0) Red Cell Distribution Width 13.5 % (11.0-15.5) Platelet Count 127 K/uL (130-400) L Mean Platelet Volume 11.5 fL (7.5-10.5) H Nucleated Red Blood Cells 0.0 % (0.0-0.19) Sodium Level 138 mmol/L (136-145) Potassium Level 4.7 mmol/L (3.5-5.1) Chloride Level 105 mmol/L (101-111) Carbon Dioxide Level 29 mmol/L (21-32) Blood Urea Nitrogen 29 mg/dL (7-18) H Creatinine 1.1 mg/dL (0.5-1.3) Glomerular Filtration Rate Calc 65 mL/min (>90) Random Glucose 84 mg/dL (70-105) Total Calcium 8.7 mg/dL (8.5-10.1) Current Medications Sodium Chloride 1,000 ml @ 0 mls/hr Q0M IV Last administered on 12/11/24at 08:31; Start 12/11/24 at 07:30; Stop 01/10/25 at 07:29 Lidocaine HCl 20 ml STK-MED ONCE .ROUTE; Start 12/11/24 at 08:55; Stop 12/11/24 at 08:55; Status DC Iohexol 35,000 mg STK-MED ONCE IV; Start 12/11/24 at 08:55; Stop 12/11/24 at 08:55; Status DC Verapamil HCl 5 mg STK-MED ONCE .ROUTE; Start 12/11/24 at 08:55; Stop 12/11/24 at 08:55; Status DC Heparin Sodium (Porcine) 10,000 unit STK-MED ONCE .ROUTE; Start 12/11/24 at 08:55; Stop 12/11/24 at 08:55; Status DC Heparin Sodium/ Sodium Chloride 0 ml @ As Directed STK-MED ONCE IV; Start 12/11/24 at 08:55; Stop 12/11/24 at 08:56; Status DC Nitroglycerin 50 mg STK-MED ONCE .ROUTE; Start 12/11/24 at 08:55; Stop 12/11/24 at 08:56; Status DC Lidocaine HCl 20 ml STK-MED ONCE .ROUTE; Start 12/11/24 at 10:40; Stop 12/11/24 at 10:41; Status DC Iohexol 35,000 mg STK-MED ONCE IV; Start 12/11/24 at 10:40; Stop 12/11/24 at 10:41; Status DC Heparin Sodium/ Sodium Chloride 1,000 ml @ As Directed STK-MED ONCE IV; Start 12/11/24 at 10:41; Stop 12/11/24 at 10:41; Status DC Nitroglycerin 50 mg STK-MED ONCE .ROUTE; Start 12/11/24 at 10:41; Stop 12/11/24 at 10:41; Status DC Fentanyl Citrate 100 mcg STK-MED ONCE .ROUTE; Start 12/11/24 at 11:07; Stop 12/11/24 at 11:11; Status DC Midazolam HCl 2 mg STK-MED ONCE .ROUTE; Start 12/11/24 at 11:07; Stop 12/11/24 at 11:11; Status DC Bivalirudin 250 mg STK-MED ONCE IV; Start 12/11/24 at 11:07; Stop 12/11/24 at 11:11; Status DC Heparin Sodium (Porcine) 10,000 unit STK-MED ONCE .ROUTE; Start 12/11/24 at 11:08; Stop 12/11/24 at 11:11; Status DC Atropine Sulfate 1 mg STK-MED ONCE IVP; Start 12/11/24 at 11:25; Stop 12/11/24 at 11:25; Status DC Clopidogrel Bisulfate 300 mg STK-MED ONCE .ROUTE; Start 12/11/24 at 12:27; Stop 12/11/24 at 12:28; Status DC Aspirin 325 mg STK-MED ONCE PO; Start 12/11/24 at 12:28; Stop 12/11/24 at 12:28; Status DC Sodium Chloride 1,000 ml @ 100 mls/hr Q10H IV; Start 12/11/24 at 13:00; Stop 12/11/24 at 18:59; Status DC Pantoprazole Sodium 40 mg DAILY PO; Start 12/12/24 at 09:00; Stop 01/11/25 at 08:59 Clopidogrel Bisulfate 75 mg DAILY PO; Start 12/12/24 at 09:00; Stop 01/11/25 at 08:59 Metoprolol Tartrate 5 mg Q5M PRN IV; Start 12/11/24 at 13:00 Dextrose 50 ml AD PRN IV; Start 12/11/24 at 13:00; Stop 01/10/25 at 12:59 Glucagon 1 mg AD PRN IM; Start 12/11/24 at 13:00; Stop 01/10/25 at 12:59 PHYSICAL EXAMINATION: GENERAL: No acute distress. HEENT: Normocephalic, atraumatic. CARDIAC: Positive S1 and S2. irregularly irregular bradycardic No murmurs. LUNGS: Clear to auscultation bilaterally. ABDOMEN: Bowel sounds present, soft, nontender. EXTREMITIES: Chronic venous stasis changes noted seek level for 1+ pretibial edema noted unchanged hyperpigmentation seen dramatic sclerosis noted NEUROLOGIC: Cranial nerves 2-12 grossly intact. PSYCHIATRIC: Calm. TELEMETRY: Atrial fibrillation no significant pauses or blocks ASSESSMENT: See above status post multi stent intervention to proximal mid distal RCA and proximal RPL PLAN: Had this time patient will go home on Xarelto and on clopidogrel. He is to start clopidogrel tomorrow as his daily dose of clopidogrel will be given prior to dismissal. Prescriptions have been written personally. Patient will follow up to see us in 1-2 weeks. All questions have been answered. CAITIE CRAWFORD MD Dec 12, 2024 07:34
[2024-12-12 07:35] VITALS: BP 155/69; PULSE 62; RESP 20; TEMP 98.6
[2024-12-12 07:40] VITALS: O2SAT 98
[2024-12-12] MEDS: cloPIDOgrel 75MG TAB PO SCH (07:53)
--- NOTE | 2024-12-12 08:04 | NUR ---
PATIENT ALERT AND ORIENTED X4, BEING DISCHARGED HOME. PATIENT EDUCATED TO FOLLOW UP WITH DR CRAWFORD, CALL OFFICE AND MAKE AN GLORIA. EDUCATED TO TAKE PRESCRIPTION TO PHARMACY FOR CLOPIDOGREL, MEDICATIONS EXPLAINED TO THE PATIENT, INCLUDING SIDE EFFECTS. IV REMOVED WITHOUT COMPLICATIONS. EDUCATED ON RIGHT GROIN ACCESS SITE, CHEST PAIN, MEDICATIONS, PLAN OF CARE. ALL QUESTIONS ANSWERED, PATIENT VERBALIZED UNDERSTANDING. PATIENT GATHERED ALL BELONGINGS AND TOOK WITH HIM AT DISCHARGE.
[2024-12-12] MEDS ORDERED: PANTOPrazole 40 MG TAB DR PO SCH (09:00)
== END 2024-12-12 08:00 | disposition home or self-care (01) ==
LOC: DAH 07:14 → DAHIP 07:15 → DAH 07:15 → 2DH 17:11
PROVIDERS: ADMIT Internal Medicine Cardiovascular Disease; ATTEND Internal Medicine Cardiovascular Disease
DX: I25.119 Atherosclerotic heart disease of native coronary artery with unspecified angina pectoris (principal); I48.19 Other persistent atrial fibrillation; D64.9 Anemia, unspecified; I11.0 Hypertensive heart disease with heart failure; I50.32 Chronic diastolic (congestive) heart failure; M19.90 Unspecified osteoarthritis, unspecified site; N40.0 Benign prostatic hyperplasia without lower urinary tract symptoms; I87.2 Venous insufficiency (chronic) (peripheral); I89.0 Lymphedema, not elsewhere classified; Z95.820 Peripheral vascular angioplasty status with implants and grafts; Z79.01 Long term (current) use of anticoagulants; Z88.0 Allergy status to penicillin
CPT/HCPCS: 80048 ×2; 83880; 85025; 85610; 85730; 81003; 36415 ×2; 71045; 93005; 92972; 93454; 85027; C1769 ×2; C1887 ×2; C1894 ×2; C1725 ×2; C1874 ×3; C1760; C1761; Q9965 ×2; G0378 ×19; J3010; J3490 ×2; J2250; J1644; J0583; Q9967; A4215; A4223 ×3; A4554; A4222; A4221; A4663; A4216; A4606; C9600; C9601; 99156; 99157; J0461

== ENCOUNTER → 2025-01-14 | Outpatient (CLI) | payer OTHER ==
[2025-01-14 12:29] LABS: HEMATOCRIT 34.5 % (42-54); MEAN CORPUSCULAR HEMOGLOBIN 30.7 pg (27.0-33.0); MEAN CORPUSCULAR HGB CONC 31.6 g/dL (32.0-36.0); MEAN CORPUSCULAR VOLUME 97.2 fL (79-99); RED BLOOD CELL COUNT(AUTO) 3.55 MIL/uL (4.50-6.20); WHITE BLOOD COUNT (AUTO) 5.4 K/uL (4.8-10.8)
[2025-01-14 12:45] LABS: CREATININE 1.2 mg/dL (0.5-1.3); POTASSIUM 4.5 mmol/L (3.5-5.1)
== END | disposition home or self-care (01) ==
LOC: LAB 10:26
PROVIDERS: ATTEND Internal Medicine Cardiovascular Disease
DX: Z51.81 Encounter for therapeutic drug level monitoring (principal); Z79.01 Long term (current) use of anticoagulants
CPT/HCPCS: 36415; 80048; 85027

== ENCOUNTER 2025-06-11 12:31 | Emergency (ER) | payer OTHER ==
[~2025-06-11] VITALS: Ht 172.7 cm; Wt 74.8 kg
[~2025-06-11 12:31] MED LIST changes: -LATA2.5D14 OP; +LATA2.5D7 OP
[2025-06-11 12:37] VITALS: BP 110/57; PULSE 75; RESP 16; TEMP 97.9; O2SAT 100
--- NOTE | 2025-06-11 14:05 | ERN ---
General Chief Complaint: Arm Swelling/Redness Stated Complaint: ARM SWELLING Time Seen by MD: 12:46 Source: patient History of Present Illness Initial Comments 89-year-old male with a history of cardiac stents cardiac disease and atrial fibrillation fell off a ladder yesterday he broke his fall with his right arm. He comes in his morning with the right wrist right hand pain and swelling. Allergies: Coded Allergies: No Known Drug Allergies (Unverified Allergy, Unknown, 06/11/15) Home Meds Reported Medications Ammonium Lactate (Lac-Hydrin 12% Lot) 12 % Lot, 1 APPL TP DAILY 12/07/24 Ketoconazole (Ketoconazole) 2 % Cream.gm., 1 APPL TP AD 12/07/24 Ketoconazole (Ketoconazole) 2 % Shampoo, 1 APPL TP QODAY 12/07/24 Nitroglycerin (Nitroglycerin) 0.4 Mg Tab.subl, 0.4 MG SL AD PRN for CHEST PAIN 12/07/24 Clotrimazole (Clotrimazole) 1 % Solution, 1 APPL TP DAILY 12/07/24 Isosorbide Mononitrate (Isosorbide Mononitrate ER) 30 Mg Tab.er.24h, 30 MG PO DAILY 12/07/24 Fluticasone/Umeclidin/Vilanter (Trelegy Ellipta 100-62.5-25) 100-62.5 Blst.w.dev, 1 PUFF DAILY 12/07/24 Furosemide (Furosemide) 20 Mg Tablet, 20 MG PO AM, TAB 12/07/24 Latanoprost (Latanoprost) 0.005 % Drops, 1 DROP OP HS, DROP 12/07/24 Oxybutynin Chloride (Ditropan) 5 Mg Tab, 5 MG PO HS, TAB 12/07/24 Atorvastatin Calcium (LIPITOR) 10 Mg Tab, 10 MG PO HS, TAB 02/27/20 Rivaroxaban (Xarelto) 20 Mg Tablet, 20 MG PO HS, TAB 06/11/15 Past Medical History Past Medical History: A-Fib, Heart Disease Past Surgical History: Other Surgical History Other: CARDIAC STENTS ROS Dictation Review of systems is otherwise negative. Physical Exam Extremities Comment Right wrist is swollen and extremely tender. His posterior hand and wrist and forearm hurt on passive extension of his digits. Results Laboratory and Microbiology Lab and Micro Result Laboratory Tests Test 06/11/25 13:46 Total Creatine Kinase 29 U/L (21-232) # MDM MDM: Differential diagnosis: Soft tissue injury versus fracture. Rationale: Tests considered and ordered secondary to shared decision making include: Previous outside records reviewed: Old ER visits. Risk of complication and/or morbidity or mortality of patient management: None Medications-Per medication reconciliation Need for hospitalization: Patient does meet criteria for hospitalization. Need for emergency major/minor surgery: No There are no social concerns with this patient. Prescription drug management Prescriptions will include symptomatic care Patient's prior external medical records from other ER visits were reviewed by me as indicated. Prior testing and results from previous visits were reviewed. Prior tests were taken into account with medical decision making and resource utilization, independent historian/historians were used to obtain complete medical history. I independently interpreted the test that were performed, results were reviewed by me and considered findings on radiology if ordered. Plain films of the patient's right hand wrist forearm and shoulder are all negative for fractures. I do recommend the patient follow-up with a hand surgeon. ED Course Orders Procedure Category Date Status Time Wrist Comp 3+Vws Rt RAD 06/11/25 Resulted 13:23 Forearm 2vws Rt RAD 06/11/25 Resulted 13:23 Hand 3+Vws Rt RAD 06/11/25 Resulted 13:23 Creatine Kinase, Total LAB 06/11/25 Complete 13:23 Shoulder Comp 2+Vws Rt RAD 06/11/25 Resulted 14:33 *Nursing CPOE 06/11/25 Transmitted Communication: 15:34 Vital Signs Date Time Temp Pulse Resp B/P (MAP) Pulse Ox O2 Delivery O2 Flow Rate FiO2 06/11/25 12:37 97.9 75 16 110/57 100 Room Air* 0 21 06/11/25 12:33 97.9 75 16 110/57 100 Room Air 0 DX & DISP Disposition: Discharge Departure Impression: Primary Impression: Hand contusion Additional Impression: Hand arthritis Condition: Stable Additional Instructions: I had a very difficult time interpreting your x-rays because of the large amount of arthritis present in all of the joints. Per my evaluation and also the radiologist's evaluation there are not any acute fractures that are obvious. I do recommend that you follow-up with a hand surgeon, an orthopedic surgeon. I have given you his phone number and address in the paperwork. In the meantime we will provide a sling for comfort. At home please keep her forearm above the level of your heart when you are resting or sleeping. This will help with the swelling. You can control your pain with ibuprofen and Tylen ol as well as ice and elevation. When you put ice on the wrist do not put the ice directly against the skin but have a piece of cloth in between the skin and the ice. Referrals: MICHELLE YANG MD (PCP) YAZAN GALVAN MD, GORDON K MD Jun 11, 2025 14:05
--- NOTE | 2025-06-11 15:22 | HMCIMG ---
EXAM: CR right Hand, 3 View. CLINICAL HISTORY: trauma COMPARISON: None provided. FINDINGS: There is mild to moderate multifocal osteoarthritis, most pronounced at the third metacarpophalangeal joint. Bones are osteopenic, limiting evaluation for nondisplaced fractures. There is no displaced fracture appreciated. There is marked soft tissue edema at the dorsal aspect of the hand. IMPRESSION: 1. No acute osseous injury. 2. Marked soft tissue edema at the dorsal aspect of the hand. /[place]
--- NOTE | 2025-06-11 15:22 | HMCIMG ---
EXAM: CR right Wrist, 3 View. CLINICAL HISTORY: trauma COMPARISON: None provided. FINDINGS: BONES: No acute osseous abnormality. No acute fracture. JOINTS: No dislocation. The carpal bones demonstrate normal alignment. SOFT TISSUES: Marked soft tissue edema at the dorsal aspect of the hand. IMPRESSION: 1. No acute osseous injury. 2. Marked soft tissue edema at the dorsal aspect of the hand. /[place]
--- NOTE | 2025-06-11 15:23 | HMCIMG ---
EXAM: CR right Shoulder, 2 View. CLINICAL HISTORY: trauma COMPARISON: None provided. FINDINGS: BONES: No acute fracture or aggressive appearing osseous lesion. Presumed prior right thoracotomy, clinical correlation is advised. Right basilar calcified pleural plaques. JOINTS: No dislocation. 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 SOFT TISSUES: The soft tissues are unremarkable. IMPRESSION: 1. No acute osseous injury. 2. Presumed prior right thoracotomy, clinical correlation is advised. 3. 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 /[place]
--- NOTE | 2025-06-11 15:25 | HMCIMG ---
EXAM: CR right Forearm, 2 View. CLINICAL HISTORY: trauma COMPARISON: None provided. FINDINGS: BONES: No acute fracture or aggressive appearing osseous lesion. JOINTS: No dislocation. The joint spaces are normal. SOFT TISSUES: Soft tissue edema at the medial, dorsal aspect of the elbow and forearm. No radiopaque foreign bodies identified. Olecranon bursitis. IMPRESSION: 1. No acute osseous injury. 2. Soft tissue edema at the medial, dorsal aspect of the elbow and forearm with olecranon bursitis. /[place]
--- NOTE | 2025-06-11 16:16 | NUR ---
APPLIED LARGE SLING TO RT ARM, PT TOLERATED WELL.
== END 2025-06-11 16:18 | disposition home or self-care (01) ==
LOC: EDH 12:31
DX: S60.211A Contusion of right wrist, initial encounter (principal); S50.11XA Contusion of right forearm, initial encounter; M19.041 Primary osteoarthritis, right hand; Z79.899 Other long term (current) drug therapy; Z95.5 Presence of coronary angioplasty implant and graft; W11.XXXA Fall on and from ladder, initial encounter; Y93.89 Activity, other specified; Y92.89 Other specified places as the place of occurrence of the external cause; Y99.8 Other external cause status
CPT/HCPCS: 36415; 73030; 73090; 73110; 73130; 82550; 99283; 99284